=== PATIENT | female | born 1970 | race Caucasian/White ===

== ENCOUNTER 2023-11-05 17:55 | Emergency (ER) | payer BC ==
[~2023-11-05] VITALS: Ht 175.3 cm; Wt 100.0 kg
[2023-11-05 18:05] VITALS: TEMP 98.3
[2023-11-05] MEDS ORDERED: cefTRIAXone 1 G,Lidocaine PF 1% 2.1 ML IM ONE (19:45)
[2023-11-05] MEDS ORDERED: Home HYDROcodone/Acetaminophen 5/325 MG #4 TABS/PACK PO ONE (19:45)
[2023-11-05 19:58] VITALS: BP 136/83; PULSE 76
== END 2023-11-05 19:58 | disposition home or self-care (01) ==
LOC: COL.ER 17:55
DX: L02.415 Cutaneous abscess of right lower limb (principal); L03.115 Cellulitis of right lower limb
CPT/HCPCS: J0696